=== PATIENT | male | born 1985 | race Native Hawaiian/Other Pacific Islander ===

== ENCOUNTER 2019-07-25 12:52 | Emergency (ER) | payer BC, MEDICAID ==
[~2019-07-25] VITALS: Ht 177.8 cm; Wt 79.4 kg
[2019-07-25 13:03] VITALS: BP 123/77
[2019-07-25] MEDS ORDERED: KETOROLAC TROMETH 60MG/2ML VIAL IM ONE (14:15)
== END 2019-07-25 14:52 | disposition home or self-care (01) ==
LOC: ER 12:52
DX: S46.911A Strain of unspecified muscle, fascia and tendon at shoulder and upper arm level, right arm, initial encounter (principal); X50.9XXA Other and unspecified overexertion or strenuous movements or postures, initial encounter; Y93.89 Activity, other specified; Y92.89 Other specified places as the place of occurrence of the external cause; Y99.8 Other external cause status
CPT/HCPCS: 73030; 96372; 99283; J1885